=== PATIENT | male | born 1945 | race Caucasian/White ===

== ENCOUNTER 2018-10-25 20:45 | Inpatient (IN) | payer MEDICARE ==
[2018-10-25 21:14] LABS: #Basophils 0.1 thou/uL (0.0-0.2); #Eosinphils 0.2 thou/uL (0.0-0.7); #Lymphocytes 1.7 thou/uL (1.20-3.40); #Monocytes 0.6 thou/uL (0.11-0.59); #Neutrophils 7.9 thou/uL (1.40-6.50); %Basophils 0.7 % (0.0-1.0); %Eosinophils 2.2 % (0.0-10.0); %Lymphocytes 15.9 % (21.0-51.0); %Monocytes 5.8 % (0.0-10.0); %Neutrophils 75.4 % (42.0-75.0); Hemoglobin 14.2 g/dL (14.0-18.0); Mean Corpuscular HGB CONC 32.9 g/dL (32.0-36.0); Mean Corpuscular Hemoglobin 31.8 pg (27.0-31.0); Mean Corpuscular Volume 96.5 fL (78.0-98.0); Mean Platelet Volume 8.1 fL (7.4-10.4); Platelet Count 342 thou/uL (130-400); RBC Distribution Width 12.1 % (11.5-14.5); Red Blood Cell (RBC) Count 4.46 mill/uL (4.70-6.10); White Blood Cell (WBC) Count 10.5 thou/uL (4.8-10.8)
[2018-10-25 21:30] LABS: ALT (SGPT) 12 U/L (8-55); AST (SGOT) 16 U/L (5-34); Albumin 4.4 g/dL (3.4-4.8); Alkaline Phosphatase 120 U/L (40-150); Anion Gap 11 mmol/L (10-20); BUN (Urea Nitrogen) 13 mg/dL (8.4-25.7); Bilirubin, Total 0.7 mg/dL (0.2-1.2); Calc. Creatinine Clearance 0 mL/min (70-130); Calcium 10.1 mg/dL (7.8-10.44); Carbon Dioxide 26 mmol/L (23-31); Chloride 106 mmol/L (98-107); Estimated GFR-MDRD 42; Globulin 2.7 g/dL (2.4-3.5); Glucose 131 mg/dL (83-110); Potassium 3.6 mmol/L (3.5-5.1); Protein, Total 7.1 g/dL (5.8-8.1); Sodium 139 mmol/L (136-145)
--- NOTE | 2018-10-25 21:47 | CT ---
NONCONTRAST HEAD CT: 10/25/18 HISTORY: Stroke-like symptoms x2 days. COMPARISON: None. FINDINGS: No parenchymal hemorrhage. No extra-axial hematoma. No midline shift. Basilar cisterns are patent. a ge appropriate atrophy. Cortical rodriguez-white matter differentiation is preserved. No evidence of hydro cephalus. There is hypoattenuation in the left xie radiata and left centrum semiovale. There is al so hypoattenuation of the right centrum semiovale. Findings may be due to chronic small vessel ischem ic change. White matter infarction cannot be excluded. Adequate aeration of the sinuses and mastoid air cells. Calvarium is intact. IMPRESSION: White matter hypodensities which may be due to chronic small vessel ischemic change versus white gabino er infarct. Given the symptoms have been present for two days, better interrogation with MRI is recom mend. Results of the study discussed with Dr. Salazar, 10/25/18 at 9:19 p.m. Code CR POS: [facility]
--- NOTE | 2018-10-25 23:11 | RAD ---
ONE VIEW CHEST: 10/25/18 HISTORY: Altered mental status. FINDINGS: Atherosclerosis and elongation of the aorta. Normal cardiac silhouette. Pulmonary vessels and hilum a re normal. Costophrenic angles are clear. No mass. No consolidation. No pneumothorax or osseous abn ormalities. IMPRESSION: Atherosclerosis. No acute cardiopulmonary process. POS: [facility]
[2018-10-26] MEDS ORDERED: Bisacodyl 5 MG TAB PO PRN (00:47)
[2018-10-26] MEDS ORDERED: Senokot S 8.6-50 MG TAB PO PRN (00:47)
[2018-10-26] MEDS ORDERED: Ondansetron PF 4 MG/2 ML Vial IVP PRN (00:47)
[2018-10-26] MEDS ORDERED: hydrALAZINE 20 MG/ML VIAL SLOW IVP PRN (00:47)
[2018-10-26] MEDS ORDERED: Ondansetron ODT 4 MG TAB PO PRN (00:47)
[2018-10-26] MEDS ORDERED: Acetaminophen 325 MG TAB PO PRN (00:47)
[2018-10-26] MEDS ORDERED: Labetalol HCl 100 MG/20 ML VIAL SLOW IVP PRN (00:47)
[2018-10-26 02:06] VITALS: BMI 22.6
[2018-10-26] MEDS: Sodium Chloride 0.9% 1,000 ML IV SCH ×2 (02:26→18:25)
[2018-10-26 05:26] LABS: #Basophils 0.1 thou/uL (0.0-0.2); #Eosinphils 0.4 thou/uL (0.0-0.7); #Lymphocytes 1.8 thou/uL (1.20-3.40); #Monocytes 0.8 thou/uL (0.11-0.59); #Neutrophils 7.4 thou/uL (1.40-6.50); %Basophils 0.5 % (0.0-1.0); %Eosinophils 3.7 % (0.0-10.0); %Lymphocytes 17.5 % (21.0-51.0); %Monocytes 7.4 % (0.0-10.0); %Neutrophils 70.9 % (42.0-75.0); Hemoglobin 13.1 g/dL (14.0-18.0); Mean Corpuscular HGB CONC 32.9 g/dL (32.0-36.0); Mean Corpuscular Hemoglobin 31.4 pg (27.0-31.0); Mean Corpuscular Volume 95.6 fL (78.0-98.0); Mean Platelet Volume 8.1 fL (7.4-10.4); Platelet Count 290 thou/uL (130-400); Red Blood Cell (RBC) Count 4.16 mill/uL (4.70-6.10); White Blood Cell (WBC) Count 10.4 thou/uL (4.8-10.8)
[2018-10-26 05:46] LABS: Albumin 3.9 g/dL (3.4-4.8); Anion Gap 9 mmol/L (10-20); BUN (Urea Nitrogen) 13 mg/dL (8.4-25.7); BUN/Creatinine Ratio 9.63; Calc. Creatinine Clearance 57 mL/min (70-130); Calcium 9.7 mg/dL (7.8-10.44); Carbon Dioxide 24 mmol/L (23-31); Cardiac Risk 3.4 (Less than 4.5); Chloride 111 mmol/L (98-107); Cholesterol 151 mg/dl (< 200 Desired); Estimated GFR-MDRD 52; Glucose 100 mg/dL (83-110); HDL Cholesterol 44 mg/dL (>60 Neg Risk); LDL Cholesterol, Calculated 81 mg/dL; Potassium 3.7 mmol/L (3.5-5.1); Sodium 140 mmol/L (136-145); Triglycerides 129 mg/dL (Less than 150)
[2018-10-26] MEDS ORDERED: hydrOXYzine 10 MG TAB PO PRN (07:05)
[2018-10-26] MEDS: Famotidine/PF 20 mg/2ml Vial SLOW IVP SCH ×2 (07:52→20:17)
[2018-10-26] MEDS ORDERED: Levothyroxine 150 MCG TAB PO SCH (08:00)
--- NOTE | 2018-10-26 08:23 | HP ---
CHIEF COMPLAINT: CVA. HISTORY OF PRESENT ILLNESS: This is a 72-year-old male with past medical history significant for hypertension, GERD, hypothyroidism, enlarged prostate, nerve pain, presenting with unilateral weakness, confusion, and facial droop. The patient was brought in by the family and per the family, the patient has been complaining of unilateral weakness, confusion, and facial droop in the past 2 days and family suspects that the patient's symptom is most likely due to his new depression medication, which was started on the day before . The patient's family did some research and they thought that okay, maybe the patient was probably having a stroke and this prompted the ED visit. Upon further questioning with the patient, the patient states that he does not really know what is going on and that he is able to ambulate with a cane, but he had like some weakness, which is new compared to his baseline. The patient denies fever, shortness of breath, chest pain, dizziness, palpitations, abdominal pain, hematuria, hematochezia, or melena. REVIEW OF SYSTEMS: Unable to be obtained since the patient is confused. PAST MEDICAL HISTORY: Hypertension, GERD, hypothyroidism, enlarged prostate, and nerve pain. FAMILY HISTORY: Reviewed and noncontributory to this visit. PAST SURGICAL HISTORY: Tonsillectomy, hernia repair x2. PSYCHIATRIC HISTORY: Depression, bipolar. SOCIAL HISTORY: The patient does not drink or use any illicit drugs and the patient does not smoke. ALLERGIES: NO KNOWN DRUG ALLERGIES. CURRENT MEDICATIONS: The patient takes; 1. Synthroid 150 mcg. 2. Claritin 10. 3. Bupropion 300 mg. 4. Omeprazole. 5. Riboflavin. 6. Tamsulosin 0.4 mg. 7. Acyclovir 400 mg. 8. [place] 300 mg. 9. Cetirizine 10 mg. 10. Trazodone 50 mg. 11. Losartan 50 mg. 12. Hydroxyzine 10 mg. 13. Gabapentin 600 mg. 14. Fluticasone 50 mcg. 15. Asmanex [place]. PHYSICAL EXAMINATION: VITAL SIGNS: The patient's blood pressure is 102/79, pulse of 54, respiratory rate of 18, temperature of 97.7, and oxygen saturation of 99% on room air. GENERAL APPEARANCE: The patient is currently lying on his right side. The patient is able to speak to me in full sentences. The patient appeared to be confused. The patient is alert and oriented x2. HEENT: Normocephalic, atraumatic. Pupils are equally round and reactive to light. Extraocular movements are intact. No scleral icterus. Mucous membranes are dry. NECK: Trachea is midline. Full range of motion. No tenderness. LUNGS: Clear to auscultation bilaterally. No wheezing, no rales, no rhonchi are appreciated. CARDIAC: Positive S1 and S2. Regular rate and rhythm. No murmurs, no gallops , no rubs are appreciated. ABDOMEN: Soft, nontender, and nondistended. Positive bowel sounds in all quadrants. EXTREMITIES: The patient has bilateral upper extremity strength and weakness. The patient do have good pulses bilaterally. For lower extremities, the patient has been some weakness at the lower extremities, but the patient is able to move both lower extremities spontaneously, and the patient is able to elevate his legs bilaterally. The patient does not have any edema noted. NEUROLOGIC: The patient's GCS score is 15. The patient is able to answer questions. SKIN: Warm, dry, and intact. PSYCH: Alert and oriented x2. IMAGING DATA: 1. EKG, sinus arrhythmia with a rate of 62. 2. CT of the head showed white matter hypodensities, which may be due to chronic small-vessel ischemic change versus white matter infarct. Given the symptoms, the patient is presenting for 2 days. MRI has been recommended. 3. Chest x-ray showed no acute cardiopulmonary process. LABORATORY DATA: 1. WBC is 10.5, hemoglobin is 14.2, hematocrit is 43.1, and platelet count is 342. 2. Sodium is 139, potassium is 3.6, chloride is 106, carbon dioxide of 26, anion gap of 11, BUN is 13, creatinine is 1.63, and glucose is 131. AST 16, ALT 12. ASSESSMENT AND PLAN: This is a 72-year-old male with past medical history of hypertension, hypothyroidism, presenting with unilateral weakness and confusion. At this point, we rule out cerebrovascular. The patient's CT scan shows some hypodensities, which may be due to chronic small-vessel ischemic change versus white matter infarct. At this point, we have ordered MRI of the head. We have ordered for an echo. We have consulted Neurology. We will follow up with Neurology's recommendations and we will follow up on morning labs and test results. We have started the patient on aspirin and atorvastatin. We will follow up on the patient's progress and we will continue neuro checks. 1. History of hypertension. We will monitor the patient's blood pressure closely and we will treat the patient's blood pressure accordingly. 2. Gastroesophageal reflux disease. We will continue patient on his home medication of proton pump inhibitors. 3. History of hypothyroidism. We will continue the patient on his home medications of Synthroid. 4. BPH. We will continue the patient on his home medication. 5. Peripheral neuropathy. We will continue the patient on his home medication. 6. Deep vein thrombosis and gastrointestinal prophylaxis. Job ID: [id number] MTDD
[2018-10-26] MEDS: Gabapentin 300 MG CAP PO SCH ×3 (08:29→20:31)
[2018-10-26] MEDS: Aspirin 81 mg Enteric Coated Tablet PO SCH (08:30)
[2018-10-26] MEDS: Bupropion 150 MG XL TAB PO SCH (08:30)
[2018-10-26] MEDS: Famotidine 20 MG TAB PO SCH ×2 (08:31→20:14)
[2018-10-26] MEDS: Heparin 5,000 UNITS/ML VIAL SC SCH ×2 (08:31→20:31)
--- NOTE | 2018-10-26 12:15 | PDOC.PN ---
- Subjective Encounter Start Date: 10/26/18 Encounter Start Time: 11:30 Emotionally labile, becomes tearful as I enter. Martha present at bedside. He is frustrated, unable to work a remote control, feels off balance with sitting up or walking. "I feel weak." Neuro consult remotely performed, consult note pending. MRI not yet performed. - Objective Resuscitation Status - Order Detail: 10/26/18 00:47 Resuscitation Status Routine Resuscitation Status: FULL: Full Resuscitation Vital Signs & Weight: Vital Signs (12 hours) Temp Pulse Resp BP Pulse Ox 10/26/18 11:42 98.5 F 60 16 171/92 H 97 10/26/18 07:48 97.7 F 60 16 142/85 H 98 10/26/18 04:00 97.7 F 61 19 132/68 97 10/26/18 00:45 98.6 F 52 L 18 149/73 H 100 Weight Weight 181 lb 9.6 oz I&O: 10/25/18 10/26/18 10/27/18 06:59 06:59 06:59 Intake Total 700 240 Balance 700 240 Result Diagrams: 10/26/18 05:10 10/26/18 05:10 Additional Labs: Accuchecks 10/25/18 20:50 POC Glucose 122 H Phys Exam - Physical Examination Emotionally labile, tearful HEENT: PERRLA, moist MMs, oral pharynx no lesions Neck: supple, full ROM Respiratory: clear to auscultation bilateral Cardiovascular: RRR Gastrointestinal: soft, non-tender Musculoskeletal: no edema, pulses present Difficulty with finger to nose left hand, decreased service engine repairer strength RUE Speech fluidity limited Deviation from normal: Labile affect. Oriented to person/place Skin: no rash Dx/Plan (1) CVA (cerebral vascular accident) Code(s): I63.9 - CEREBRAL INFARCTION, UNSPECIFIED Status: Suspected Comment : MRI pending, will review neuro consult recommendations when available. Anticipate ASA/statin, PT/OT. Consideration for inpatient status and inpatient rehab pending PT/OT recs. (2) Hypothyroid Code(s): E03.9 - HYPOTHYROIDISM, UNSPECIFIED Status: Chronic Comment: Continue home thyroid replacement (3) Hypertension Code(s): I10 - ESSENTIAL (PRIMARY) HYPERTENSION Status: Chronic (4) GERD (gastroesophageal reflux disease) Code(s): K21.9 - GASTRO-ESOPHAGEAL REFLUX DISEASE WITHOUT ESOPHAGITIS Status: Chronic (5) BPH (benign prostatic hyperplasia) Code(s): N40.0 - BENIGN PROSTATIC HYPERPLASIA WITHOUT LOWER URINRY TRACT SYMP Status: Chronic Comment: Chronic, on flomax (6) Depression Code(s): F32.9 - MAJOR DEPRESSIVE DISORDER, SINGLE EPISODE, UNSPECIFIED Status : Acute - Plan cont current plan of care, plan discussed w/ family, PT/OT, social worker masters, speech therapy, incentive spirometry, DVT proph w/lovenox * See above. Follow up neurologic workup. Doubt based on exam today patient can return independently to home on an observation timeline. Patient high risk.
--- NOTE | 2018-10-26 14:24 | MRI ---
NONCONTRAST MRI OF THE BRAIN: DATE: 10/26/2018. HISTORY: TIA, generalized weakness greater on the left. COMPARISON: Noncontrast CT head on 10/25/2018. FINDINGS: There are punctate and patchy areas of increased FLAIR and T2 weighted signal intensity predominantly seen in a periventricular white matter and to a lesser extent involving the subcortical white matter . These findings are overall nonspecific. While a demyelinating process cannot be excluded given po sition of the white matter signal abnormality, findings are likely reflective of chronic small-vessel ischemic changes. There is no evidence of an acute infarction. Mild cerebral volume is present. The ventricular system is normal in size, shape, and position for t he degree of sulcal atrophy. Appropriate flow voids are demonstrated at the base of the brain. Minimal mucosal thickening is seen in the ethmoidal air cells bilaterally. The orbits and skull base have a normal MRI appearance. IMPRESSION: 1. No acute intracranial abnormalities demonstrated. 2. Signal abnormalities in the periventricular and subcortical white matter likely reflective of chr onic small-vessel ischemic changes. Demyelinating process could not be entirely excluded given the p ositioning and appearance of the white matter signal abnormalities, but this would likely be a known finding. 3. Mild cerebral volume loss. POS: [facility]
[2018-10-26] MEDS: Acyclovir 400 mg Tablet PO SCH (20:13)
[2018-10-26] MEDS: Loratadine 10 MG TAB PO SCH (20:14)
[2018-10-26] MEDS: Lithium Carbonate ER 450 mg Tablet PO SCH (20:14)
[2018-10-26] MEDS: traZODone HCl 50 MG TAB PO SCH (20:14)
[2018-10-26] MEDS: Tamsulosin HCl 0.4 MG CAP PO SCH (20:14)
[2018-10-26] MEDS: Atorvastatin Calcium 40 MG TAB PO SCH (20:14)
[2018-10-26] MEDS ORDERED: Fluticasone Propionate Nasal Spray 16 gm Bottle NASAL PRN (21:15)
--- NOTE | 2018-10-26 23:15 | CON ---
DATE OF CONSULTATION: CHIEF COMPLAINT: Acute stroke. HISTORY OF PRESENT ILLNESS: The patient's fiancee gave the information. The patient has not been feeling well since . He was not feeling well. He was tired. He was sleeping 15 hours a day, was not eating or drinking. Elyssa thought it was the medication, because he was recently started on Eskalith by his psychiatric and he became a bit confused. However, yesterday evening, he developed more speech problems and confusion around 4 to 5 p.m. and developed a left facial droop and left-sided weakness. She recognized the signs of his stroke and brought him immediately to the hospital. The patient is unable to give much history. Due to the delay in presentation, he was not considered for tPA and no tPA was given. Otherwise, the patient is reported to be very healthy, has a good sense of humor. The patient's fiancee has been with him for 7 years. He has had no major health issues. Strokes do run in his family and he does not take aspirin on a daily basis. He did have some dizziness, tiredness, twitching and tremor, and felt that both arms were numb. PAST MEDICAL HISTORY: Hypertension, gastroesophageal reflux disease, hypothyroidism, prostate enlargement, and nerve pain. FAMILY HISTORY: Positive for strokes in a sister, but they do not know which member of the family according to his fiancee. PAST MEDICAL HISTORY: Tonsillectomy and hernia repair. PREVIOUS PSYCHIATRIC HISTORY: He has bipolar disorder. SOCIAL HISTORY: He does not drink or use any alcohol or smoking. ALLERGIES: NO KNOWN DRUG ALLERGIES. HOME MEDICATIONS: 1. Synthroid. 2. Claritin. 3. Bupropion. 4. Omeprazole. 5. Riboflavin. 6. Tamsulosin. 7. Acyclovir. 8. [place]. 9. Cetirizine. 10. Trazodone. 11. Losartan. 12. Hydroxyzine. 13. Gabapentin. 14. Fluticasone. 15. He has not been on any aspirin at home. REVIEW OF SYSTEMS: Difficult to obtain due to the patient's mental status. LABORATORY DATA: White count 10.4, hemoglobin 13.1, hematocrit 39.7, and platelets 290. Chemistries, sodium 140, potassium 3.7, chloride 111, BUN 13, and creatinine 1.35. Cholesterol panel as noted and it is normal. TSH 0.55. His MRI is performed and he has no acute intracranial abnormalities. He has punctate patchy area of increased FLAIR and T2 wide signal and numerous chronic small vessel ischemic changes and signal abnormality in the periventricular subcortical white matter, likely chronic microvascular ischemic changes. He has mild cerebral volume loss. PHYSICAL EXAMINATION: VITAL SIGNS: Blood pressure 142/85, pulse 60, and temperature 97.7. GENERAL: Alert, awake, and not oriented to time, place and person. He has some confusion and does follow commands. CHEST: Clear vesicular breathing. CARDIOVASCULAR: S1, S2 heard. No murmurs. ABDOMEN: Soft. NEUROLOGICAL: Higher intellectual functions. As noted, he is somewhat confused, does not follow full commands. Cranial nerves, he has left facial droop and pupils are normal and reactive to light. Normal sensation of face. Tongue, midline. No atrophy. Normal hearing. Normal elevation of palate. Motor examination, bulk normal, tone normal. Strength is 5/5 in the right side in general, difficult to assess individual muscle groups. Left upper extremity gross strength is 3/5. Sensory, difficult to assess. IMPRESSION: The patient is a 72-year-old man, who comes in with 2- to 3-day history of difficulty with cognitive function along with left-sided weakness. His examination shows confusion and mild cerebellar dysfunction on the left side along with some asymmetry with weakness on the left side, likely these findings are due to some of the small vessel ischemic events. At this time since he also may have some confusion due to his new medication changes from psychiatry as well, it is best to clinically follow this patient. TREATMENT PLAN: We will start him on aspirin for stroke prophylaxis. We will follow the patient clinically. Please complete stroke workup including echocardiogram and carotid Dopplers, and I will see the patient again tomorrow. Job ID: [id number]
[2018-10-27] MEDS: Sodium Chloride 0.9% 1,000 ML IV SCH (05:02)
[2018-10-27] MEDS: Levothyroxine 150 MCG TAB PO SCH (05:19)
[2018-10-27 05:23] LABS: Band 2 % (5-11); Eosinophils 2 % (0-10); Hemoglobin 12.7 g/dL (14.0-18.0); Lymphocytes 11 % (21-51); MDiff Complete? YES; Mean Corpuscular HGB CONC 33.8 g/dL (32.0-36.0); Mean Corpuscular Volume 94.9 fL (78.0-98.0); Mean Platelet Volume 8.3 fL (7.4-10.4); Monocytes 4 % (0-10); Neutrophil 80 % (42-75); PLT Morphology Comment Appears Adequate; Platelet Count 286 thou/uL (130-400); RBC Distribution Width 11.8 % (11.5-14.5); RBC Morphology Normal; Reactive Lymphocytes 1 % (0-10); Red Blood Cell (RBC) Count 3.96 mill/uL (4.70-6.10); White Blood Cell (WBC) Count 8.6 thou/uL (4.8-10.8)
[2018-10-27 05:25] LABS: Anion Gap 11 mmol/L (10-20); BUN (Urea Nitrogen) 11 mg/dL (8.4-25.7); Calc. Creatinine Clearance 68 mL/min (70-130); Calcium 9.4 mg/dL (7.8-10.44); Carbon Dioxide 22 mmol/L (23-31); Cardiac Risk 3.2 (Less than 4.5); Chloride 112 mmol/L (98-107); Cholesterol 142 mg/dl (< 200 Desired); Estimated GFR-MDRD 64; Glucose 103 mg/dL (83-110); HDL Cholesterol 45 mg/dL (>60 Neg Risk); LDL Cholesterol, Calculated 79 mg/dL; Potassium 3.5 mmol/L (3.5-5.1); Sodium 141 mmol/L (136-145); Triglycerides 92 mg/dL (Less than 150)
[2018-10-27] MEDS ORDERED: Prevnar 13-Val Conj/PF 0.5 ML SYRINGE IM ONE (09:00)
[2018-10-27] MEDS: Bupropion 150 MG XL TAB PO SCH (10:25)
[2018-10-27] MEDS: Gabapentin 300 MG CAP PO SCH ×3 (10:26→21:05)
[2018-10-27] MEDS: Famotidine 20 MG TAB PO SCH ×2 (10:26→21:06)
[2018-10-27] MEDS: Heparin 5,000 UNITS/ML VIAL SC SCH ×2 (10:26→21:05)
[2018-10-27] MEDS: Aspirin 81 mg Enteric Coated Tablet PO SCH (10:26)
[2018-10-27] MEDS: Famotidine/PF 20 mg/2ml Vial SLOW IVP SCH ×2 (10:27→21:25)
--- NOTE | 2018-10-27 11:17 | PRG ---
DATE OF SERVICE: 10/27/2018 SUBJECTIVE: The patient is seen and examined at the bedside. He noticed that he is not able to stand up. His back and legs are not strong enough to hold him up while trying to stand. He ate his breakfast. His appetite is coming back. OBJECTIVE: VITAL SIGNS: Blood pressure is 158/79, pulse is 61, temperature is 97.5, O2 saturation is 97% on room air, and his respiratory rate is 16. HEENT: His head is atraumatic and normocephalic. Eyes, PERRLA. Sclerae are nonicteric. Oral mucosa is moist. NECK: Supple. LUNGS: Clear. HEART: S1 and S2 normal. No S3. No S4. ABDOMEN: Soft, nontender, and nondistended. Bowel sounds are present. No organomegaly. EXTREMITIES: No clubbing, cyanosis, or edema. MUSCULOSKELETAL SYSTEM: Shows a normal muscle tone in upper and lower extremities. There is some weakness in the lower extremities. He is able to elevate both legs and hold them up. NEUROLOGIC: He follows my commands. He does not have any sensory deficits. I do not see any facial droop. There is no any difference between the right arm strength and the left arm strength. LABORATORY DATA: Lab showed white count of 8.6, hemoglobin 12.7, hematocrit 37.6, platelet count is 286,000, and neutrophils 80%. Sodium of 141, potassium 3.5, chloride 112, CO2 of 22, BUN 11, creatinine 1.13, glucose 103, calcium 9.4, triglycerides 92, total cholesterol 142, LDL 79, and HDL is 45. MRI of the brain done yesterday showed punctate and patchy areas of increased FLAIR and T2 weighted signal intensity predominantly seen in the periventricular white matter and to a lesser extent involving the subcortical white matter. The findings were nonspecific. Demyelinating process could not be excluded given position of the white matter signal abnormality, but radiologists is leaning towards chronic small vessel ischemic changes. There was nonevidence of infarction of acute nature. There was mild cerebral volume present. Minimal mucosal thickening was seen in the ethmoidal air cell bilaterally and there was some mild cerebral volume loss. An echocardiogram showed LVEF of 50% to 55%, some suggestion of diastolic dysfunction, mild mitral and mild aortic regurgitation, and mild tricuspid regurgitation were present on echocardiogram. IMPRESSION: 1. Episodes of confusion with some facial droop and 1 sided weakness resolved. MRI is showing most likely small vessel ischemic changes. No acute infarction. The patient is on aspirin and statin. The patient was seen by neurologist and that is a working diagnosis. We are awaiting for carotid ultrasound to be done to complete cerebrovascular accident workup. 2. Back/lower extremity weakness of unclear etiology. Apparently, the patient has this issue chronically, which presents with some back pain associated with some change of L4, but he is not sure what exactly is wrong with L4. He has normal reflexes in both knees and his Babinski sign is downgoing bilaterally. He is not in any pain during my visit and his lower extremities showed some mild weakness bilaterally. We will address this issue with a neurologist as Dr. Carnes, who is seeing the patient on consultation. 3. Hypothyroidism, on replacement. 4. Hypertension. 5. Gastroesophageal reflux disease. 6. Benign prostatic hyperplasia. 7. Depression. PLAN: At this point, awaiting for carotid ultrasound to be done. We will continue PT and OT. We will address his lower extremity weakness with neurologist. We will see whether she recommends an additional workup of this process, since this is chronic. We will continue DVT prophylaxis. Job ID: [id number]
--- NOTE | 2018-10-27 15:12 | PRG ---
DATE OF SERVICE: 10/27/2018 INTERVAL CHIEF COMPLAINT: Altered mental status. INTERVAL HISTORY: The patient reports that he was on lithium, but it was increased two and a half times compared to his past dosage. He also stated his left side is almost feeling weak and he had some problems with his back as well in his past. He is feeling better as far as his mental status is concerned today and current workup MRI has been negative for any acute infarct. LABORATORY WORKUP: White count is 8.6, hemoglobin 12.7, hematocrit 37, platelets 286. Sodium 141, potassium 3.5, chloride 112, bicarbonate 22, BUN is 11, and creatinine 1.13. PHYSICAL EXAMINATION: VITAL SIGNS: Blood pressure 137/77, pulse 62, temperature 98.1. GENERAL APPEARANCE: Alert, awake, oriented to time, place, and person. Cranial nerves; normal extraocular movements, and no facial asymmetry. Motor examination; bulk normal. Tone normal. Strength is 5/5 in upper and lower extremities on the right. Left side strength is 4/5. Deep tendon reflexes, he has hyperreflexia throughout. IMPRESSION: The patient with high doses of lithium and at this time, he is having problems with his left side even now and he has been having some confusion, which seems to have resolved. On examination, he has left-sided weakness in both upper and lower extremities and we need to investigate further he has any cervical spine stenosis or cervical spine disease including possible two spine lesions such as demyelination. TREATMENT PLAN: I requested an MRI of the cervical spine with and without gadolinium and please obtain lithium level on him. Please call Neurology if MRI is abnormal. Job ID: [id number]
--- NOTE | 2018-10-27 17:17 | MRI ---
MRI CERVICAL SPINE WITH AND WITHOUT IV CONTRAST: Date: 10-27-18 History: Left arm and left leg weakness. Comparison: None available. FINDINGS: Cervical medullary junction demonstrates a normal MRI appearance. There are remote fractures involvin g the anterior and superior endplates of the T2 and T3 vertebral bodies without abnormal marrow signa l intensity seen on STIR imaging suggesting that this most likely related to more remote minimal comp ression fractures of the vertebral bodies. There is slight heterogeneity of signal within the vertebr al bodies related to focal areas of fat. No other significant abnormalities are seen throughout the o sseous structures. There are mild multilevel disc degenerative changes present. C2-3: There is mild central disc protrusion which slightly effaces the ventral subarachnoid space. Th ere is mild degenerative changes predominately on the right resulting in mild right sided neural fora daren narrowing. The left neural foramen is patent. C3-4: There is a mild disc osteophyte complex slightly effacing the ventral subarachnoid space. There are facet degenerative changes at this level. Moderate bilateral neural foraminal narrowing is prese nt, greater on the left. C4-5: There is a mild broad based disc osteophyte complex with uncinate process hypertrophy seen on t he left. There is moderate left and mild right sided neural foraminal narrowing. There is mild efface ment of the ventral subarachnoid space, but this does not encroach on the spinal cord. C5-6: There is slight loss of intervertebral disc height. There is a broad based disc osteophyte comp debbie with tiny central disc protrusion present. This narrows the ventral subarachnoid space with sligh t flattening of the aspect of the spinal cord, but there is normal signal intensity seen in the spina l cord. There is moderate right and moderate to severe left sided neural foraminal narrowing. C6-7: There is a broad based disc osteophyte complex with left paracentral disc protrusion. This narr ows the ventral subarachnoid space and there is very slight flattening of the central and left barbara lateral aspect of the spinal cord. There is normal signal intensity in the spinal cord. There is mild right and moderate left sided neural foraminal narrowing. C7-T1: There is minimal disc bulge. The central spinal canal and neural foramina are present at this level. No abnormal areas of enhancement are seen after the administration of intravenous contrast. Paraverte bral soft tissues are within normal limits. IMPRESSION: 1. Degenerative changes in the cervical spine. 2. Minimal remote compression fractures of the superior endplates of the T2 and T3 vertebral bodies. 3. No abnormal enhancement is seen after the administration of intravenous contrast. POS: [facility]
[2018-10-27] MEDS: Tamsulosin HCl 0.4 MG CAP PO SCH (21:05)
[2018-10-27] MEDS: traZODone HCl 50 MG TAB PO SCH (21:05)
[2018-10-27] MEDS: Atorvastatin Calcium 40 MG TAB PO SCH (21:05)
[2018-10-27] MEDS: Lithium Carbonate ER 450 mg Tablet PO SCH (21:06)
[2018-10-27] MEDS: Loratadine 10 MG TAB PO SCH (21:06)
[2018-10-27] MEDS: Acyclovir 400 mg Tablet PO SCH (21:06)
[2018-10-27] MEDS: Zolpidem Tartrate 5 MG TAB PO PRN (22:42)
[2018-10-28] MEDS: Levothyroxine 150 MCG TAB PO SCH (06:15)
[2018-10-28] MEDS: Famotidine/PF 20 mg/2ml Vial SLOW IVP SCH (10:14)
[2018-10-28] MEDS: Heparin 5,000 UNITS/ML VIAL SC SCH ×2 (10:25→21:50)
[2018-10-28] MEDS: Bupropion 150 MG XL TAB PO SCH (10:26)
[2018-10-28] MEDS: Gabapentin 300 MG CAP PO SCH ×3 (10:26→21:38)
[2018-10-28] MEDS: Aspirin 81 mg Enteric Coated Tablet PO SCH (10:26)
[2018-10-28] MEDS: Famotidine 20 MG TAB PO SCH ×2 (10:26→21:37)
--- NOTE | 2018-10-28 10:37 | ULT ---
CAROTID DUPLEX SONOGRAM: HISTORY: CVA. Vascular disease. FINDINGS: RIGHT: Color and spectral Doppler evaluation, peak systolic velocity of 58 cm/s, and IC to CC ratio of 0.6 s uggests no hemodynamically significant stenosis within the extracranial right ICA. Antegrade flow wi thin the vertebral artery. LEFT: Color and spectral Doppler evaluation, peak systolic velocity of 49 cm/s, and IC to CC ratio of 0.6 s uggests no hemodynamically significant stenosis within the extracranial left ICA. Antegrade flow wit hin the vertebral artery. IMPRESSION: No sonographic evidence of significant extracranial internal carotid artery stenosis. POS: [facility]
--- NOTE | 2018-10-28 15:10 | PRG ---
DATE OF SERVICE: 10/28/2018 SUBJECTIVE: The patient is seen and examined at the bedside. He was able to get up and walk some with physical therapy today, so overall he is feeling better, but he has moments when he wakes up from sleep and he does not know where he is, which lasts only few minutes, but it keeps coming back. OBJECTIVE: VITAL SIGNS: Blood pressure is 152/62, temperature is 97.5, pulse 69, respiratory rate 16, O2 saturation 97% on room air. HEENT: Head is atraumatic and normocephalic. Eyes are PERRLA. Sclerae are nonicteric. Oral mucosa is moist. NECK: Supple. No lymphadenopathy. Thyroid is not palpable. LUNGS: Clear. HEART: S1, S2 normal. No S3, no S4. ABDOMEN: Soft, nontender. Bowel sounds are present. No organomegaly. EXTREMITIES: No clubbing, cyanosis, or edema. NEUROLOGICAL: He is alert and oriented x4. EXTREMITIES: Lower extremities show some weakness, but this seems to be improving with PT. He does not have much pain. LABORATORY DATA: Labs showed a lithium level of 0.804. Carotid Doppler showed no sonographic evidence of significance, except for internal carotid artery stenosis, and cervical spine MRI ordered by Dr. Carnes for Neurology evaluation showed degenerative changes in the cervical spine along with minimal remote compression fractures of the superior endplates of the T2 and T3 vertebral bodies. There was no abnormal enhancement seen after the administration of intravenous contrast. IMPRESSION: 1. Episodes of confusion with some facial droop and one-sided weakness. The patient was re-evaluated by Dr. Carnes for Neurology assessment. The patient's lithium level came back not elevated. MRI did not show any demyelinating lesions in the spine. 2. Hypothyroidism, on replacement. 3. Lower back/lower extremity weakness, improved with PT. CT of the neck showed some old minimal fractures which should not be the cause of the above-mentioned problem. This looks more chronic to me. He admitted that he was in the [employer], and as a soldier, he had to do all kinds of stuff, falls, and this could be related to that. 4. Hypertension. 5. Gastroesophageal reflux disease. 6. Benign prostatic hyperplasia. 7. Depression. PLAN: Plan is to get him to the rehab. Continue PT and OT. Continue his DVT prophylaxis. Job ID: [id number]
[2018-10-28] MEDS: Acyclovir 400 mg Tablet PO SCH (21:36)
[2018-10-28] MEDS: traZODone HCl 50 MG TAB PO SCH (21:36)
[2018-10-28] MEDS: Tamsulosin HCl 0.4 MG CAP PO SCH (21:37)
[2018-10-28] MEDS: Atorvastatin Calcium 40 MG TAB PO SCH (21:37)
[2018-10-28] MEDS: Lithium Carbonate ER 450 mg Tablet PO SCH (21:38)
[2018-10-28] MEDS: Loratadine 10 MG TAB PO SCH (21:54)
[2018-10-29] MEDS: Zolpidem Tartrate 5 MG TAB PO PRN (00:27)
[2018-10-29] MEDS: Levothyroxine 150 MCG TAB PO SCH (05:54)
[2018-10-29] MEDS: Bupropion 150 MG XL TAB PO SCH (08:29)
[2018-10-29] MEDS: Famotidine 20 MG TAB PO SCH ×2 (08:30→20:41)
[2018-10-29] MEDS: Aspirin 81 mg Enteric Coated Tablet PO SCH (08:30)
[2018-10-29] MEDS: Gabapentin 300 MG CAP PO SCH ×3 (08:30→20:41)
[2018-10-29] MEDS: Heparin 5,000 UNITS/ML VIAL SC SCH ×2 (08:31→20:55)
--- NOTE | 2018-10-29 13:21 | PRG ---
DATE OF SERVICE: 10/29/2018 SUBJECTIVE: The patient is seen and examined at bedside. He is doing gradually better. He states he is walking today with physical therapy. His mental function is back to normal. He did not have more episodes of confusion. OBJECTIVE: VITAL SIGNS: Blood pressure is 130/71, pulse is 74, temperature 97.7, respiratory rate is 20, O2 saturation is 100. His head is atraumatic and normocephalic. Eyes are PERRLA. Sclerae are not icteric. Oral mucosa is moist. NECK: Supple. LUNGS: Clear. HEART: S1, S2 normal. No S3. No S4. ABDOMEN: Soft, nontender, nondistended. EXTREMITIES: No clubbing, cyanosis, or edema. There is weakness in lower extremities, in thighs and calves, 3/5. NEUROLOGICAL: He is alert and oriented x4. There is not any sensory or motor deficits present. Cranial nerves are intact. LABORATORY DATA: None today. IMPRESSION: 1. Episodes of confusion with some facial droop and one-sided weakness. The patient was seen by Neurology and we do not have more explanation of his current condition. The MRI did not show any lesions in his cervical spine. An MRI of the brain showed signal abnormalities in the periventricular and subcortical white matter, likely reflective of chronic small vessel ischemic changes. Blood demyelinating process was not entirely excluded. 2. Hypothyroidism, on replacement. 3. Low back/lower extremity weakness, improving with PT. The patient is going to be sent to the rehab tomorrow. 4. Hypertension. 5. Gastroesophageal reflux disease, stable. 6. Benign prostatic hyperplasia, stable. 7. Depression, stable. PLAN: As mentioned above, rehab transfer tomorrow. Continue PT, OT, DVT prophylaxis. Continue atorvastatin, aspirin, bupropion, gabapentin, levothyroxine, lithium, loratadine, pantoprazole, and trazodone. Job ID: [id number]
[2018-10-29] MEDS: traZODone HCl 50 MG TAB PO SCH (20:41)
[2018-10-29] MEDS: Acyclovir 400 mg Tablet PO SCH (20:41)
[2018-10-29] MEDS: Atorvastatin Calcium 40 MG TAB PO SCH (20:41)
[2018-10-29] MEDS: Tamsulosin HCl 0.4 MG CAP PO SCH (20:41)
[2018-10-29] MEDS: Loratadine 10 MG TAB PO SCH (20:41)
[2018-10-29] MEDS: Lithium Carbonate ER 450 mg Tablet PO SCH (20:42)
[2018-10-30] MEDS: Levothyroxine 150 MCG TAB PO SCH (05:33)
[2018-10-30] MEDS: Aspirin 81 mg Enteric Coated Tablet PO SCH (12:04)
[2018-10-30] MEDS: Heparin 5,000 UNITS/ML VIAL SC SCH ×2 (12:04→21:28)
[2018-10-30] MEDS: Gabapentin 300 MG CAP PO SCH ×3 (12:05→21:27)
[2018-10-30] MEDS: Bupropion 150 MG XL TAB PO SCH (12:58)
[2018-10-30] MEDS: Famotidine 20 MG TAB PO SCH ×2 (12:58→21:28)
--- NOTE | 2018-10-30 14:28 | PRG ---
DATE OF SERVICE: 10/30/2018 SUBJECTIVE: The patient is seen and examined at the bedside. He is not feeding, much improvement in his lower extremities despite of PT. OBJECTIVE: VITAL SIGNS: Blood pressure is 125/78, pulse is 63, respiratory rate is 16, O2 saturation 99% on room air, and temperature is 97.3. HEENT: His head is atraumatic and normocephalic. Eyes are PERRLA. Sclerae are nonicteric. Oral mucosa is moist. NECK: Supple. LUNGS: Clear. HEART: S1, S2 normal. No S3. No S4. ABDOMEN: Soft, nontender. Bowel sounds are present. No organomegaly. EXTREMITIES: Some weakness in lower extremities present in thighs and calves, is approximately 4/5 bilaterally similar. Upper extremities, normal strength. NEUROLOGICAL: He is alert and oriented x4. There is no evidence of any motor or sensory deficits present. Cranial nerves are intact. LABORATORY DATA: None today. IMPRESSION: 1. Episodes of confusion with some facial droop and one-sided weakness, resolved. 2. Hypothyroidism, on replacement. 3. Lower extremity weakness, home PT. The patient is able to walk 300 feet, but according to him, he is not able to go back to his house since he has a small baby. He needs to use a walker and environment in his house is not appropriate for further rehabilitation process. He insists to be transferred to the rehabilitation to intensify his effort of regaining strength in his lower extremities. 4. Hypertension. 5. Gastroesophageal reflux disease, stable. 6. Benign prostatic hyperplasia, stable. 7. Depression, stable. PLAN: We are going to continue his current regimen until he is screened for the rehab and arrange the transfer, so we will continue his atorvastatin, aspirin, bupropion, gabapentin, levothyroxine, lithium, loratadine, pantoprazole, and trazodone. Job ID: [id number]
[2018-10-30] MEDS: Tamsulosin HCl 0.4 MG CAP PO SCH (21:27)
[2018-10-30] MEDS: Lithium Carbonate ER 450 mg Tablet PO SCH (21:27)
[2018-10-30] MEDS: Acyclovir 400 mg Tablet PO SCH (21:28)
[2018-10-30] MEDS: Atorvastatin Calcium 40 MG TAB PO SCH (21:28)
[2018-10-30] MEDS: traZODone HCl 50 MG TAB PO SCH (21:28)
[2018-10-30] MEDS: Loratadine 10 MG TAB PO SCH (21:28)
[2018-10-31] MEDS: Levothyroxine 150 MCG TAB PO SCH (05:54)
[2018-10-31 08:01] VITALS: TEMP 97.6
[2018-10-31 09:41] VITALS: BP 120/66
[2018-10-31] MEDS: Aspirin 81 mg Enteric Coated Tablet PO SCH (09:41)
[2018-10-31] MEDS: Gabapentin 300 MG CAP PO SCH (09:42)
[2018-10-31] MEDS: Famotidine 20 MG TAB PO SCH (09:42)
[2018-10-31] MEDS: Bupropion 150 MG XL TAB PO SCH (09:42)
[2018-10-31] MEDS: Heparin 5,000 UNITS/ML VIAL SC SCH (09:42)
== END 2018-10-31 12:13 | DRG 65 ==
LOC: ERS 20:45 → 2SE 23:20 → OBSVTOIN 23:20 → 2SE 10-26 00:40
PROVIDERS: ADMIT Internal Medicine; ATTEND Internal Medicine
DX: I63.9 Cerebral infarction, unspecified (principal); G81.94 Hemiplegia, unspecified affecting left nondominant side; I10 Essential (primary) hypertension; K21.9 Gastro-esophageal reflux disease without esophagitis; E03.9 Hypothyroidism, unspecified; N40.0 Benign prostatic hyperplasia without lower urinary tract symptoms; F31.9 Bipolar disorder, unspecified; G62.9 Polyneuropathy, unspecified; R29.810 Facial weakness
CPT/HCPCS: 36415; 36416; 70450; 70498; 70551; 71045; 72156; 80048; 80053; 80061; 80069; 80178; 84443; 84484; 85007; 85025; 85027; 90471; 90670; 93005; 93010; 93306; 93880; G0009; G8978-GP-CL; G8979-GP-CJ; G8987-GO-CK; G8988-GO-CJ; G9162-GN-CJ; G9163-GN-CI; J1644

== ENCOUNTER 2018-12-24 13:36 | Observation (INO) | payer MEDICARE, OTHER ==
[2018-12-24 14:19] LABS: #Eosinphils 0.4 thou/uL (0.0-0.7); #Lymphocytes 1.1 thou/uL (1.20-3.40); #Monocytes 0.5 thou/uL (0.11-0.59); #Neutrophils 5.7 thou/uL (1.40-6.50); %Basophils 0.5 % (0.0-1.0); %Eosinophils 5.1 % (0.0-10.0); %Lymphocytes 14.5 % (21.0-51.0); %Monocytes 6.6 % (0.0-10.0); %Neutrophils 73.3 % (42.0-75.0); Hemoglobin 13.7 g/dL (14.0-18.0); Mean Corpuscular Hemoglobin 30.7 pg (27.0-31.0); Mean Platelet Volume 8.4 fL (7.4-10.4); Platelet Count 304 thou/uL (130-400); RBC Distribution Width 11.5 % (11.5-14.5); Red Blood Cell (RBC) Count 4.46 mill/uL (4.70-6.10); White Blood Cell (WBC) Count 7.8 thou/uL (4.8-10.8)
[2018-12-24 14:38] LABS: ALT (SGPT) 21 U/L (8-55); AST (SGOT) 17 U/L (5-34); Albumin 3.9 g/dL (3.4-4.8); Alkaline Phosphatase 121 U/L (40-150); Anion Gap 10 mmol/L (10-20); BUN (Urea Nitrogen) 18 mg/dL (8.4-25.7); Bilirubin, Total 0.5 mg/dL (0.2-1.2); Calc. Creatinine Clearance 0 mL/min (70-130); Calcium 9.6 mg/dL (7.8-10.44); Carbon Dioxide 23 mmol/L (23-31); Chloride 109 mmol/L (98-107); Estimated GFR-MDRD 47; Globulin 2.5 g/dL (2.4-3.5); Glucose 107 mg/dL (83-110); Lipase 19 U/L (8-78); Potassium 4.2 mmol/L (3.5-5.1); Protein, Total 6.4 g/dL (5.8-8.1); Sodium 138 mmol/L (136-145)
--- NOTE | 2018-12-24 15:03 | RAD ---
CHEST 1 VIEW: Date: 12/24/18 HISTORY: Mid sternal chest pain. COMPARISON: 10/25/18 exam. FINDINGS: Heart size is enlarged. There are atherosclerotic changes of the aorta. The lungs are clear of infilt rates. IMPRESSION: Marked cardiomegaly. No signs of failure or focal infiltrate. POS: TPC
--- NOTE | 2018-12-24 17:01 | PDOC.FPRHP ---
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 Per the patient, he has had a constant substernal chest pain for the last 3-4 months that describes as an achy pain & rates as a 3/10 in severity at baseline. He does; however, report that the pain is exacerbated with taking a deep breath and exertion and increases to an 8/10 in severity at these times and is sharp in nature. The patient reports partial relief with rest and endorses associated SOB, nausea and lightheadedness but denies any diaphoresis. 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 The patient also reports having had an abnormal ECHO on his recent admission for his stroke. ED Course: Nothing was given in the ED. Patient took 81mg of ASA w/ QD meds earlier today. - Allergies/Adverse Reactions Allergies Allergy/AdvReac Type Severity Reaction Status Date / Time No Known Allergies Allergy Verified 10/26/18 01:38 - Home Medications Medication Instructions Recorded Confirmed Type Acyclovir 400 mg PO HS 10/26/18 10/26/18 History Cetirizine HCl [Zyrtec] 10 mg PO HS 10/26/18 10/26/18 History Fluticasone Propionate [Flovent 50 mcg NASAL DAILY PRN 10/26/18 10/26/18 History Diskus] Gabapentin 300 mg PO TID 10/26/18 10/26/18 History Levothyroxine [Synthroid] 150 mcg PO DAILY 10/26/18 10/26/18 History [place] Carbonate [Eskalith] 450 mg PO HS 10/26/18 10/26/18 History Loratadine [Claritin] 10 mg PO DAILY PRN 10/26/18 10/26/18 History Losartan Potassium [Cozaar] 50 mg PO HS 10/26/18 10/26/18 History Mometasone Furoate [Asmanex 220 mcg IH DAILY PRN 10/26/18 10/26/18 History Twisthaler] Omeprazole 20 mg PO BID 10/26/18 10/26/18 History Riboflavin (Vitamin B2) 100 mg PO BID 10/26/18 10/26/18 History [Riboflavin] Tamsulosin HCl [Flomax] 0.4 mg PO HS 10/26/18 10/26/18 History buPROPion HCl [buPROPion HCl XL] 300 mg PO DAILY 10/26/18 10/26/18 History hydrOXYzine HCl 10 mg PO DAILY PRN 10/26/18 10/26/18 History traZODone HCl [Trazodone HCl] 50 mg PO HS 10/26/18 10/26/18 History Acetaminophen [Tylenol Regular 650 mg PO Q4H PRN tab 10/31/18 Rx Strength] Aspirin [Ecotrin Low Strength] 81 mg PO DAILY tab 10/31/18 Rx Atorvastatin Calcium [Lipitor] 80 mg PO HS tab 10/31/18 Rx Ondansetron [Zofran ODT] 4 mg PO Q6H PRN tab 10/31/18 Rx Zolpidem Tartrate [Ambien] 5 mg PO HSPRN PRN tab 10/31/18 Rx - History PMHx: h/o CVA in Sep w/ residual L-sided deficits, GERD, HTN, HLD, BPH, Bipolar disorder, depression, hypothyroidism PSHx: tonsillectomy & hernia repair x2 FHx: Father: from an [place] at age 82. Mother : multiple CVAs Social: Former smoker. Quit in 1981. Smoked just < 1ppd for at least 20 years. Former alcoholic. No EtOH since 1974. No drug use. Lives at home with 40YO significant other and 1 year old child. - Review of Systems General: reports: fatigue. denies: weight/appetite/sleep changes Eyes: denies: eye pain, vision changes ENT: reports: other (no sore throat). denies: rhinorrhea Respiratory: reports: shortness of breath. denies: cough Cardiovascular: reports: chest pain. denies: edema Gastrointestinal: reports: nausea. denies: vomiting, abdominal pain Genitourinary: reports: other (no hematuria). denies: dysuria Skin: reports: other (no skin changes). denies: rashes Musculoskeletal: reports: pain, tenderness Neurological: reports: other (no headache). denies: syncope Psychological: reports: depression, other (bipolar disorder) - Vital signs BP: 135/80 HR: 78 RR: 21 Tmax: 98.5F Pox: 97% on RA Wt: 89kg - Physical Exam Constitutional: NAD, awake, alert and oriented, well developed HEENT: normocephalic and atraumatic, conjunctiva clear, grossly normal vision, grossly normal hearing, MMM Neck: supple, FROM Chest: other (TTP in R sternum) Heart: normal S1/S2, no murmurs/rubs/gallops, pulses present, no edema, other ( irregular rhythm but normal rate) Lungs: CTAB, no respiratory distress, good air movement, no rales/rhonchi, no wheezing Abdomen: no masses/distention Musculoskeletal: normal structure, ROM grossly normal Neurological: CN II-XII intact (grossly), other (mild L-sided weakness, otherwise no focal deficits) Skin: no rash/lesions, good turgor, capillary refill <2 seconds Heme/Lymphatic: no unusual bruising or bleeding, no purpura, no petechia Psychiatric: normal mood and affect, good judgment and insight, intact recent and remote memory FMR H&P: Results - Labs Result Diagrams: 12/24/18 13:59 12/24/18 13:59 Lab results: WBC 7.8 thou/uL (4.8-10.8) 12/24/18 13:59 Hgb 13.7 g/dL (14.0-18.0) L 12/24/18 13:59 Hct 42.8 % (42.0-52.0) 12/24/18 13:59 MCV 96.0 fL (78.0-98.0) 12/24/18 13:59 Plt Count 304 thou/uL (130-400) 12/24/18 13:59 Neutrophils % 73.3 % (42.0-75.0) 12/24/18 13:59 Sodium 138 mmol/L (136-145) 12/24/18 13:59 Potassium 4.2 mmol/L (3.5-5.1) 12/24/18 13:59 Chloride 109 mmol/L (98-107) H 12/24/18 13:59 Carbon Dioxide 23 mmol/L (23-31) 12/24/18 13:59 BUN 18 mg/dL (8.4-25.7) 12/24/18 13:59 Creatinine 1.46 mg/dL (0.7-1.3) H 12/24/18 13:59 Glucose 107 mg/dL (83-110) 12/24/18 13:59 Calcium 9.6 mg/dL (7.8-10.44) 12/24/18 13:59 Total Bilirubin 0.5 mg/dL (0.2-1.2) 12/24/18 13:59 AST 17 U/L (5-34) 12/24/18 13:59 ALT 21 U/L (8-55) 12/24/18 13:59 Alkaline Phosphatase 121 U/L (40-150) 12/24/18 13:59 B-Natriuretic Peptide 78.8 pg/mL (0-100) 12/24/18 13:59 Serum Total Protein 6.4 g/dL (5.8-8.1) 12/24/18 13:59 Albumin 3.9 g/dL (3.4-4.8) 12/24/18 13:59 Lipase 19 U/L (8-78) 12/24/18 13:59 - EKG Interpretation EKG: sinus arrhythmia w/ rate of 73 - Radiology Interpretation Chest x-ray Status: image reviewed by me, report reviewed by me (per Radiology marked cardiomegaly (changed from CXR in September)) FMR H&P: A/P - Problem List (1) Bipolar disorder Current Visit: Yes Status: Chronic Code(s): F31.9 - BIPOLAR DISORDER, UNSPECIFIED (2) HLD (hyperlipidemia) Current Visit: Yes Status: Chronic Code(s): E78.5 - HYPERLIPIDEMIA, UNSPECIFIED (3) (HFpEF) heart failure with preserved ejection fraction Current Visit: Yes Status: Chronic Code(s): I50.30 - UNSPECIFIED DIASTOLIC ( CONGESTIVE) HEART FAILURE Qualifiers: Heart failure chronicity: chronic Qualified Code(s): I50.32 - Chronic diastolic (congestive) heart failure (4) Chest pain Current Visit: Yes Status: Acute Code(s): R07.9 - CHEST PAIN, UNSPECIFIED (5) Depression Current Visit: Yes Status: Chronic Code(s): F32.9 - MAJOR DEPRESSIVE DISORDER, SINGLE EPISODE, UNSPECIFIED (6) BPH (benign prostatic hyperplasia) Current Visit: Yes Status: Chronic Code(s): N40.0 - BENIGN PROSTATIC HYPERPLASIA WITHOUT LOWER URINRY TRACT SYMP (7) GERD (gastroesophageal reflux disease) Current Visit: Yes Status: Chronic Code(s): K21.9 - GASTRO-ESOPHAGEAL REFLUX DISEASE WITHOUT ESOPHAGITIS (8) Hypertension Current Visit: Yes Status: Chronic Code(s): I10 - ESSENTIAL (PRIMARY) HYPERTENSION (9) Hypothyroid Current Visit: Yes Status: Chronic Code(s): E03.9 - HYPOTHYROIDISM, UNSPECIFIED (10) CVA (cerebral vascular accident) Current Visit: No Status: Suspected Code(s): I63.9 - CEREBRAL INFARCTION, UNSPECIFIED - Plan Typical chest pain: History moderately suspicious given CP is worse with exertion & relieved with rest but character & worsening with inspiration more suspicious for pleuritic type pain consistent w/ possible pericarditis vs. myocarditis. No suspicion for any pulmonary infection such as PNA seen on CXR or based on clinical picture as patient is afebrile and satting well on RA. EKG showed sinud arrhythmia w/ no ST changes and initial troponin negative. BNP also WNLs. However, given risk factors, age, & moderately suspicious history heart score of 5 so will admit for telemetry for ACS r/o. - Will obtain a repeat PA & lateral CXR to re-evaluate concern for marked cardiomegaly read on CXR in ED. - Will continue to trend trops and make NPO at midnight for a repeat CXR in the AM. - Will order PRN nitrostat & IV morphine for chest pain overnight. HTN: - Aware, will resume home losartan. HLD: - Will obtain a FLP in the AM since patient has reported h/o of CVA & is not on a statin & also to risk stratify for possible ACS. - Will start on atorvastatin 40mg HS. CKD III: - Cr slightly elevated on comparison to last Cr in early October at 1.46 w/ an eGFR of 47. However, has been documented as worse than this per chart review. BUN:Cr ratio < 20 so likely pre-renal vs. intrinsic in origin. - Will hold on on IVFs as patient did not appear dry on clinical exam & recheck a BMP in the AM. h/o CVA: - Will continue home ASA & start on atorvastatin as described above. GERD: - Will resume home meds. BPH: - Will resume home meds. hypothyroidism: - Aware, will resume home synthroid but will check a TSH given chest pain. Bipolar disorder: - Aware, will resume home meds. Depression: - Aware, will resume home meds. Dispo: Will admit to tele for obs overnight. NPO at midnight for AM stress test & ECHO. Abx: none IVFs: none Diet: HH, low sodium; NPO at midnight DVT PPX: lovenox GI PPX: omeprazole CODE STATUS: FULL CODE FMR H&P: Upper Level - Pertinent history 73 yo M here with complaint of exertional chest pain that has been progressively worsening over the past month. He states that the pain is substernal and does not radiate. Pain resolves with rest. Associated symptoms include diaphoresis and shortness of breath. Patient has a hx of CVA in Sep 2018 with persisting left sided weakness. He was also diagnosed in that hospitalization with HFpEF, EF of 50-55%. In ED today the first trop was negative and EKG shows sinus arrhythmia. No ST or T wave changes. CXR shows a marked change in cardiac silhouette. PMHx HTN HFpEF CVA Hypothyroid MDD FHx Paternal CAD Maternal CVA x3 Social Hx 20 pack year smoker, quit in 1981 Former etoh abuse, quit in Denies recreational drugs - Pertinent findings See automotive internet sales manager note for vitals ROS General denies fever/chills. Admits to diaphoresis CV complains of substernal chest pain made worse by exercise. Does not radiate Resp denies SOB, cough Abd denies n/v/d Extremities denies edema Neuro complains of chronic L sided weakness PE General A&O x4 HEENT NCAT CV irregular rhythm, no murmur. Sinus arrhythmia noted on EKG. Chest pain not reproducible with palpation Rest CTA b/l Abd non tender, normal bowel sounds, no distension Extremities no edema, normal pedal pulses b/l Neuro Mild left sided weakness. Otherwise no focal deficits - Plan Date/Time: 12/24/18 17[address] DO, have evaluated this patient and agree with findings/plan as outlined by automotive internet sales manager resident. Pertinent changes/additions are listed here. 1. Chest pain - HEART score 6, admit to tele obs - trend trop x3 - Echo and stress in am, NPO at midnight, hold beta blockers - continue ASA 2. HFpEF - repeat echo as above. CXR shows marked change in cardiac size, however patient does not appear to be acutely overloaded. Normal sats, lungs are clear, no edema, no murmur 3. Hx of CVA - unclear why patient is not on plavix and statin. Plan to start while here 4. HTN - home meds 5. Hypothyroid - home meds PPx SHERIF is 2 will start SCD and frequent ambulation Diet HH, NPO at midnight Code Full Dispo: Patient is stable and not currently experiencing chest pain. Stress/echo in am, likely dc tomorrow pending results.
[2018-12-24] MEDS ORDERED: Acetaminophen 325 MG TAB PO PRN (18:36)
[2018-12-24] MEDS ORDERED: Nitroglycerin 0.4 MG TAB (25 Tab Bottle) SL PRN (18:36)
[2018-12-24] MEDS ORDERED: Morphine 4 MG/ML VIAL SLOW IVP PRN (18:36)
[2018-12-24 18:52] VITALS: BMI 24.5
[2018-12-24] MEDS ORDERED: Mometasone Furoate 120 PUFF 220 MCG INH PRN (19:01)
[2018-12-24 20:15] LABS: Magnesium 2.1 mg/dL (1.6-2.6); Phosphorus 3.3 mg/dL (2.3-4.7)
[2018-12-24] MEDS: Loratadine 10 MG TAB PO SCH (20:33)
[2018-12-24] MEDS: Atorvastatin Calcium 40 MG TAB PO SCH (20:33)
[2018-12-24] MEDS: Gabapentin 300 MG CAP PO SCH (20:33)
[2018-12-24] MEDS: Losartan 25 MG TAB PO SCH (20:33)
[2018-12-24] MEDS: Tamsulosin HCl 0.4 MG CAP PO SCH (20:33)
[2018-12-24] MEDS: Acyclovir 400 mg Tablet PO SCH (20:33)
--- NOTE | 2018-12-24 20:43 | RAD ---
PA AND LATERAL CHEST 12/24/18 HISTORY: Mid sternal chest pain. Assessment of cardiomegaly. The heart size borderline in size on this PA projection. There are atherosclerotic changes of the aor ta. A hiatal hernia is present. Lungs show chronic change. IMPRESSION: 1. Borderline heart size. Apparent enlargement on the prior exam appears it was just related to an apical lordotic technique. 2. Moderate hiatal hernia. POS: HUGO
--- NOTE | 2018-12-25 05:59 | PDOC.FM ---
- Subjective Subjective: Pt states he had mild pain occasionally throughout the night that would resolve spontaneously. He denies SOB, headaches, nausea, vomiting, or abdominal pain. He reports difficulty sleeping, likely due to room and bed. - Objective MAR Reviewed: Yes Vital Signs & Weight: Vital Signs (12 hours) Temp Pulse Resp BP BP Pulse Ox 12/25/18 04:14 98.1 F 64 14 134/67 96 12/24/18 19:24 97.5 F L 75 18 123/70 98 12/24/18 18:32 97.8 F 82 16 123/72 98 Weight Weight 89.176 kg Result Diagrams: 12/24/18 13:59 12/25/18 04:28 Phys Exam - Physical Examination Constitutional: NAD HEENT: PERRLA, moist MMs Neck: supple, full ROM Respiratory: no wheezing, no rales, no rhonchi, clear to auscultation bilateral Cardiovascular: RRR, no significant murmur, no rub Gastrointestinal: soft, non-tender, no distention, positive bowel sounds Musculoskeletal: no edema, pulses present Neurological: non-focal, moves all 4 limbs Psychiatric: normal affect, A&O x 3 Skin: cap refill <2 seconds Dx/Plan (1) CKD (chronic kidney disease), stage III Code(s): N18.3 - CHRONIC KIDNEY DISEASE, STAGE 3 (MODERATE) Status: Acute (2) History of CVA (cerebrovascular accident) Code(s): Z86.73 - PRSNL HX OF TIA (TIA), AND CEREB INFRC W/O RESID DEFICITS Status: Acute (3) Chest pain Code(s): R07.9 - CHEST PAIN, UNSPECIFIED Status: Acute (4) Bipolar disorder Code(s): F31.9 - BIPOLAR DISORDER, UNSPECIFIED Status: Chronic (5) GERD (gastroesophageal reflux disease) Code(s): K21.9 - GASTRO-ESOPHAGEAL REFLUX DISEASE WITHOUT ESOPHAGITIS Status: Chronic (6) HLD (hyperlipidemia) Code(s): E78.5 - HYPERLIPIDEMIA, UNSPECIFIED Status: Chronic (7) Hypertension Code(s): I10 - ESSENTIAL (PRIMARY) HYPERTENSION Status: Chronic - Plan Plan: This is a 73 yo male with a pmh of HTN, HLD, Hx of CVA, bipolar disorder, CKD 3 , BPH, GERD, hypothyroidism Typical chest pain -Normal CXR -EKG with sinus arrhythmia, no st changes -Heart score 5 -Troponin negative x3 -PRN nitro/morphine overnight for pain control -Pending AM stress test and echo -TSH is low at .08 HTN -Continue home losartan HLD -Pending lipid panel CKD3 -Cr slightly above baseline, holding fluids for now h/o CVA -Continue ASA and start atorvastatin GERD -Resume home meds Hypothyroidism -Low TSH at 0.8, may contribute to chest pain -Pending free t3/t4 Bipolar -Continue home meds BPH -Continue home meds
[2018-12-25 06:09] LABS: Anion Gap 9 mmol/L (10-20); BUN (Urea Nitrogen) 20 mg/dL (8.4-25.7); Calc. Creatinine Clearance 61 mL/min (70-130); Carbon Dioxide 25 mmol/L (23-31); Cardiac Risk 3.3 (Less than 4.5); Chloride 110 mmol/L (98-107); Cholesterol 127 mg/dl (< 200 Desired); Estimated GFR-MDRD 53; Glucose 93 mg/dL (83-110); HDL Cholesterol 39 mg/dL (>60 Neg Risk); LDL Cholesterol, Calculated 77 mg/dL; Sodium 140 mmol/L (136-145); Triglycerides 56 mg/dL (Less than 150)
[2018-12-25] MEDS: Levothyroxine Sodium 75 MCG TAB PO SCH (06:27)
[2018-12-25] MEDS: Bupropion 150 MG XL TAB PO SCH (08:11)
[2018-12-25] MEDS: Aspirin Chewable 81 MG TAB PO SCH (08:11)
[2018-12-25] MEDS: Gabapentin 300 MG CAP PO SCH ×3 (08:11→21:16)
[2018-12-25 08:51] LABS: Free T4 (Free Thyroxine) 1.11 ng/dL (0.70-1.48)
[2018-12-25] MEDS ORDERED: Regadenoson 0.4 MG/5 ML SYRINGE ONE (08:55)
[2018-12-25] MEDS ORDERED: Clopidogrel Bisulfate 75 MG TAB PO SCH (09:00)
--- NOTE | 2018-12-25 12:57 | PRG ---
DATE OF SERVICE: 12/25/2018 Mr. Mike is a pleasant 73-year-old male with no prior medical history of coronary artery disease, who presents with some atypical chest pain. He has risk factors and in fact in the past has had a stroke. He is currently undergoing a stress Myoview exam. He has had no chest discomfort since admission. His troponins are less than 0.01 x2 so far. Lipids; cholesterol is 127, his LDL is 77. We will await the results of his stress Myoview. If negative, he will be discharged. If positive, we will consult Cardiology to consider left heart catheterization. Job ID: [id number]
--- NOTE | 2018-12-25 14:36 | NM ---
MYOCARDIAL PERFUSION SCAN WITH SPECT IMAGING: History: Chest pain. FINDINGS: Examination was performed using 30 mCi Technetium 99M Sestamibi on stress and 9.5 mCi Technetium 99M Sestamibi on the resting images. This shows a fairly normal distribution of radiopharmaceutical witho ut signs of ischemia. Wall Motion: There is global hypokinesis. Left Ventricular Ejection Fraction: Calculated left ventricular ejection fraction was 39%. IMPRESSION: 1. No evidence of ischemia. 2. Diminished left ventricular ejection fraction or 39%. Please correlate with echocardiogram. POS: EDY
[2018-12-25] MEDS: RIBOFLAVIN 100 MG PO SCH ×2 (18:41→18:42)
[2018-12-25] MEDS: Acyclovir 400 mg Tablet PO SCH (21:14)
[2018-12-25] MEDS: Loratadine 10 MG TAB PO SCH (21:16)
[2018-12-25] MEDS: Tamsulosin HCl 0.4 MG CAP PO SCH (21:17)
[2018-12-25] MEDS: Losartan 25 MG TAB PO SCH (21:17)
[2018-12-25] MEDS: Atorvastatin Calcium 40 MG TAB PO SCH (21:18)
--- NOTE | 2018-12-26 05:51 | PDOC.FM ---
- Subjective Subjective: Pt reports no pain overnight. He states he is feeling better as well. He denies SOB, nausea, vomiting, or abdominal pain. - Objective MAR Reviewed: Yes Vital Signs & Weight: Vital Signs (12 hours) Temp Pulse Resp BP Pulse Ox 12/26/18 04:03 97.9 F 65 16 132/68 95 12/25/18 19:51 98.1 F 69 12 142/87 H 98 Weight Weight 85.139 kg I&O: 12/24/18 12/25/18 12/26/18 06:59 06:59 06:59 Intake Total 540 650 Balance 540 650 Result Diagrams: 12/24/18 13:59 12/25/18 04:28 Phys Exam - Physical Examination Constitutional: NAD HEENT: PERRLA, moist MMs Neck: supple Respiratory: no wheezing, no rales, clear to auscultation bilateral Cardiovascular: RRR, no significant murmur Gastrointestinal: soft, non-tender, no distention, positive bowel sounds Musculoskeletal: no edema, pulses present Neurological: moves all 4 limbs Psychiatric: normal affect, A&O x 3 Skin: cap refill <2 seconds Dx/Plan (1) CKD (chronic kidney disease), stage III Code(s): N18.3 - CHRONIC KIDNEY DISEASE, STAGE 3 (MODERATE) Status: Acute (2) History of CVA (cerebrovascular accident) Code(s): Z86.73 - PRSNL HX OF TIA (TIA), AND CEREB INFRC W/O RESID DEFICITS Status: Acute (3) Chest pain Code(s): R07.9 - CHEST PAIN, UNSPECIFIED Status: Acute (4) Bipolar disorder Code(s): F31.9 - BIPOLAR DISORDER, UNSPECIFIED Status: Chronic (5) GERD (gastroesophageal reflux disease) Code(s): K21.9 - GASTRO-ESOPHAGEAL REFLUX DISEASE WITHOUT ESOPHAGITIS Status: Chronic (6) HLD (hyperlipidemia) Code(s): E78.5 - HYPERLIPIDEMIA, UNSPECIFIED Status: Chronic (7) Hypertension Code(s): I10 - ESSENTIAL (PRIMARY) HYPERTENSION Status: Chronic - Plan Plan: This is a 73 yo male with a pmh of HTN, HLD, Hx of CVA, bipolar disorder, CKD 3 , BPH, GERD, hypothyroidism Typical chest pain -Normal CXR -EKG with sinus arrhythmia, no st changes -Heart score 5 -Troponin negative x3 -PRN nitro/morphine pain control -TSH is low at .08 -Echo shows EF of 45-50% with concern for diastolic dysfunction -Consult cardiology for above findings HTN -Continue home losartan HLD -Pending lipid panel CKD3 -Cr slightly above baseline, holding fluids for now h/o CVA -Continue ASA and start atorvastatin GERD -Resume home meds Hypothyroidism -Low TSH at 0.8, may contribute to chest pain -Normal T3/T4 Bipolar -Continue home meds BPH -Continue home meds
[2018-12-26] MEDS: Levothyroxine Sodium 75 MCG TAB PO SCH (06:22)
[2018-12-26] MEDS: Bupropion 150 MG XL TAB PO SCH (07:48)
[2018-12-26] MEDS: Gabapentin 300 MG CAP PO SCH (07:49)
[2018-12-26] MEDS: Aspirin Chewable 81 MG TAB PO SCH (07:50)
[2018-12-26 11:47] VITALS: BP 143/73; TEMP 97.5
--- NOTE | 2018-12-26 12:33 | PRG ---
DATE OF SERVICE: 12/26/2018 Mr. Mike is a pleasant 73-year-old man, who was admitted yesterday with some chest discomfort. Subsequent stress Myoview shows no evidence of reversible ischemia. He had history of possible heart failure and an echo was therefore performed. His echocardiogram report demonstrated an ejection fraction of 45% to 50%. There was suggestion of diastolic dysfunction. Mild mitral regurgitation and mild aortic regurgitation were noted. We consulted Cardiology, but they would prefer to see him as an outpatient. He will therefore be discharged later today with instructions regarding his diet. Job ID: [id number]
--- NOTE | 2018-12-27 06:31 | DIS ---
DATE OF ADMISSION: 12/24/2018 DATE OF DISCHARGE: 12/26/2018 RESIDENT: Devonte Tesfaye DO. ADMITTING ATTENDING: Dr. Damien Rush. DISCHARGING ATTENDING: Dr. Damien Rush. CONSULTS: None. PROCEDURES: 1. Chest x-ray showing marked cardiomegaly without signs of failure or local infiltrate. 2. Cardiac stress test shows no evidence of ischemia, but does show diminished left ventricular ejection fraction of 39%. 3. Echocardiogram shows E/A flow reversal suggestive of diastolic dysfunction and EF estimated at 45% to 50%. PRIMARY DIAGNOSIS: New onset heart failure with preserved ejection fraction. SECONDARY DIAGNOSES: 1. Hypertension. 2. BPH. 3. Hypothyroidism. 4. Gastroesophageal reflux disease. 5. Bipolar. 6. History of cerebrovascular disease. 7. Major depressive disorder. 8. Hyperlipidemia. 9. Chronic kidney disease, stage 3. DISCHARGE MEDICATIONS: 1. Lasix 20 mg p.o. daily. 2. Acyclovir 400 mg p.o. at bedtime. 3. Aspirin 81 mg p.o. daily. 4. Atorvastatin 80 mg p.o. at bedtime. 5. Bupropion 300 mg p.o. daily. 6. Zyrtec 10 mg p.o. at bedtime. 7. Gabapentin 300 mg p.o. t.i.d. 8. Hydroxyzine 10 mg p.o. daily. 9. Levothyroxine 150 mcg p.o. daily. 10. Vista carbonate 300 mg p.o. at bedtime. 11. Omeprazole 20 mg p.o. b.i.d. 12. Vitamin B2 is 100 mg p.o. b.i.d. 13. Tamsulosin 0.4 mg p.o. at bedtime. 14. Ambien 5 mg p.o. at bedtime p.r.n. insomnia. Discontinued medications, none. HISTORY OF PRESENT ILLNESS/HOSPITAL COURSE: This 73-year-old male who presented to the ER with past medical history as above with substernal chest pain that had been going on for three or four months. He rates the pain as 3/10 in severity, but states that the pain is worse with taking a deep breath. On admission, patient had a HEART score of 5, and was admitted to [facility] for echocardiogram as well as nuclear stress test. The patient was found to have the findings above. I discussed this case with Dr. Peacock, who would like to see the patient in an outpatient setting. At the time of discharge, patient was asymptomatic. Vital signs were stable. DISPOSITION: Stable. DISCHARGE INSTRUCTIONS: 1. Location, home. 2. Diet, heart healthy. 3. Activity, as tolerated. 4. Follow up with Dr. Peacock in 14 days as [facility] 1 to 2 weeks. Job ID: [id number]
== END 2018-12-26 12:31 | disposition home or self-care (01) ==
LOC: ERS 13:36 → 2SW 18:21
PROVIDERS: ADMIT Family Medicine; ATTEND Family Medicine
DX: I13.0 Hypertensive heart and chronic kidney disease with heart failure and stage 1 through stage 4 chronic kidney disease, or unspecified chronic kidney disease (principal); N18.3 Chronic kidney disease, stage 3 (moderate); I50.32 Chronic diastolic (congestive) heart failure; N40.0 Benign prostatic hyperplasia without lower urinary tract symptoms; E03.9 Hypothyroidism, unspecified; F31.9 Bipolar disorder, unspecified; K21.9 Gastro-esophageal reflux disease without esophagitis; E78.5 Hyperlipidemia, unspecified; I69.954 Hemiplegia and hemiparesis following unspecified cerebrovascular disease affecting left non-dominant side; I34.0 Nonrheumatic mitral (valve) insufficiency; I35.1 Nonrheumatic aortic (valve) insufficiency; K44.9 Diaphragmatic hernia without obstruction or gangrene; Z90.89 Acquired absence of other organs; Z87.891 Personal history of nicotine dependence; Z79.82 Long term (current) use of aspirin; Z79.899 Other long term (current) drug therapy; Z98.890 Other specified postprocedural states
CPT/HCPCS: 36415; 71045; 71046; 78452; 80048; 80053; 80061; 83690; 83735; 83880; 84100; 84439; 84443; 84481; 84484; 85025; 93005; 93017; 93306; A9500; G0378; J2785

== ENCOUNTER 2021-10-16 16:34 | Inpatient (IN) | payer OTHER ==
[2021-10-16] MEDS ORDERED: cefTRIAXone\\ROCEPHIN 1 GM VIAL ONE (16:57)
[2021-10-16 17:23] LABS: Bilirubin Negative (Negative); Blood, Urine 3+ (Negative); Clarity Clear (Clear); Glucose, Urine (Dipstick) Normal (Negative); Ketone, Urine Negative (Negative); Leukocyte 500 Leu/uL (Negative); Nitrite Negative (Negative); Protein, Urine (Dipstick) 30 mg/dL (Neg-Trace); RBC/HPF Greater than 50 HPF (0-3); Specific Gravity, Urine 1.013 (1.002-1.036); Squamous Epithelial None Seen HPF (0-3); Urobilinogen Normal mg/dL (Less than 2); WBC/HPF Greater than 50 HPF (0-3)
[2021-10-16 17:34] LABS: #Eosinphils 0.3 thou/uL (0.0-0.7); #Lymphocytes 0.4 thou/uL (1.20-3.40); #Monocytes 0.6 thou/uL (0.11-0.59); %Basophils 0.3 % (0.0-1.0); %Eosinophils 1.9 % (0.0-10.0); %Lymphocytes 2.6 % (21.0-51.0); %Monocytes 4.5 % (0.0-10.0); %Neutrophils 90.7 % (42.0-75.0); Hemoglobin 15.5 g/dL (14.0-18.0); Mean Corpuscular HGB CONC 31.3 g/dL (32.0-36.0); Mean Corpuscular Hemoglobin 30.9 pg (27.0-31.0); Mean Corpuscular Volume 98.6 fL (78.0-98.0); Mean Platelet Volume 8.6 fL (7.4-10.4); Platelet Count 266 thou/uL (130-400); RBC Distribution Width 12.4 % (11.5-14.5); Red Blood Cell (RBC) Count 5.02 mill/uL (4.70-6.10); White Blood Cell (WBC) Count 13.3 thou/uL (4.8-10.8)
[2021-10-16 17:37] LABS: Bacteria/HPF 1+ HPF (None Seen)
[2021-10-16 17:49] LABS: ALT (SGPT) 16 U/L (8-55); AST (SGOT) 27 U/L (5-34); Albumin 4.3 g/dL (3.4-4.8); Alkaline Phosphatase 157 U/L (40-110); Anion Gap 13 mmol/L (10-20); BUN (Urea Nitrogen) 16 mg/dL (8.4-25.7); Bilirubin, Total 0.9 mg/dL (0.2-1.2); CK (CPK) 328 U/L (30-200); Calc. Creatinine Clearance 0 mL/min (70-130); Calcium 11.1 mg/dL (7.8-10.44); Carbon Dioxide 25 mmol/L (23-31); Chloride 110 mmol/L (98-107); Globulin 3.7 g/dL (2.4-3.5); Glucose 127 mg/dL (83-110); Lipase 22 U/L (8-78); Magnesium 2.1 mg/dL (1.6-2.6); Potassium 4.1 mmol/L (3.5-5.1); Sodium 144 mmol/L (136-145)
[2021-10-16] MEDS ORDERED: Vancomycin 1 GM/200 ML BAG ONE (18:49)
[2021-10-16] MEDS ORDERED: Bisacodyl 5 MG TAB PO PRN (19:21)
[2021-10-16] MEDS ORDERED: Acetaminophen 650 MG Suppository PR PRN (19:21)
[2021-10-16] MEDS ORDERED: Senokot S 8.6-50 MG TAB PO PRN (19:21)
[2021-10-16] MEDS ORDERED: Acetaminophen 325 MG TAB PO PRN (19:21)
[2021-10-16] MEDS ORDERED: Bisacodyl 10 MG SUPP PR PRN (19:21)
[2021-10-16] MEDS: Lactated Ringer's 1,000 ML IV SCH (20:53)
[2021-10-16] MEDS: Famotidine 20 MG TAB PO SCH (20:53)
[2021-10-16] MEDS: Heparin 5,000 UNITS/ML VIAL SC SCH (21:01)
[2021-10-16 21:18] LABS: SARS-CoV-2 NAA Rapid Test Not Detected (NotDetected)
[2021-10-17] MEDS: Losartan 25 MG TAB PO SCH ×2 (03:29→20:12)
[2021-10-17] MEDS: Tamsulosin HCl 0.4 MG CAP PO SCH ×2 (03:29→20:12)
[2021-10-17] MEDS: Levothyroxine 150 MCG TAB PO SCH (05:08)
[2021-10-17] MEDS: Lactated Ringer's 1,000 ML IV SCH ×2 (05:08→12:38)
[2021-10-17 05:55] LABS: #Eosinphils 0.4 thou/uL (0.0-0.7); #Lymphocytes 0.7 thou/uL (1.20-3.40); #Monocytes 0.9 thou/uL (0.11-0.59); #Neutrophils 9.4 thou/uL (1.40-6.50); %Basophils 0.1 % (0.0-1.0); %Eosinophils 3.2 % (0.0-10.0); %Lymphocytes 6.1 % (21.0-51.0); %Monocytes 7.6 % (0.0-10.0); Hemoglobin 13.2 g/dL (14.0-18.0); Mean Corpuscular HGB CONC 31.8 g/dL (32.0-36.0); Mean Corpuscular Hemoglobin 31.7 pg (27.0-31.0); Mean Corpuscular Volume 99.9 fL (78.0-98.0); Mean Platelet Volume 8.6 fL (7.4-10.4); Platelet Count 245 thou/uL (130-400); RBC Distribution Width 12.2 % (11.5-14.5); Red Blood Cell (RBC) Count 4.16 mill/uL (4.70-6.10); White Blood Cell (WBC) Count 11.3 thou/uL (4.8-10.8)
[2021-10-17 06:14] LABS: Anion Gap 12 mmol/L (10-20); BUN (Urea Nitrogen) 14 mg/dL (8.4-25.7); Calc. Creatinine Clearance 60 mL/min (70-130); Calcium 9.5 mg/dL (7.8-10.44); Carbon Dioxide 20 mmol/L (23-31); Chloride 117 mmol/L (98-107); Glucose 105 mg/dL (83-110); Potassium 3.9 mmol/L (3.5-5.1); Sodium 145 mmol/L (136-145)
[2021-10-17] MEDS ORDERED: FLU VACC QS2021-22(65YR UP)/PF 240 MCG/0.7 ML SYRINGE IM ONE (09:00)
[2021-10-17] MEDS: Heparin 5,000 UNITS/ML VIAL SC SCH ×3 (09:41→20:15)
[2021-10-17] MEDS: Aspirin 81 mg Enteric Coated Tablet PO SCH ×2 (10:11→12:29)
[2021-10-17 12:03] VITALS: BMI 20.7
[2021-10-17] MEDS: Cyanocobalamin (Vitamin B-12) 1,000 MCG TAB PO SCH (12:29)
[2021-10-17] MEDS: Magnesium Oxide 400 MG TAB PO SCH (12:30)
[2021-10-17] MEDS: Calcium Carbonate 600 MG + Vit D TAB PO SCH ×2 (12:30→20:12)
[2021-10-17] MEDS: Carbidopa/Levodopa CR 50-200 mg Tablet PO SCH ×3 (12:30→20:12)
[2021-10-17] MEDS: Famotidine 20 MG TAB PO SCH ×3 (12:31→20:15)
[2021-10-17] MEDS: Polyethylene Glycol 3350 17 GM Packet PO SCH (12:36)
[2021-10-17] MEDS ORDERED: cefTRIAXone\\ROCEPHIN 1 GM in Sodium Chloride 0.9% 100 ML IVPB SCH (18:00)
[2021-10-17] MEDS ORDERED: Lithium Carbonate ER 450 mg Tablet PO SCH (21:00)
[2021-10-17] MEDS ORDERED: Atorvastatin Calcium 40 MG TAB PO SCH (21:00)
[2021-10-18] MEDS: Levothyroxine 150 MCG TAB PO SCH (05:39)
[2021-10-18 06:28] LABS: #Eosinphils 0.6 thou/uL (0.0-0.7); #Lymphocytes 1.2 thou/uL (1.20-3.40); #Monocytes 0.7 thou/uL (0.11-0.59); #Neutrophils 6.3 thou/uL (1.40-6.50); %Basophils 0.3 % (0.0-1.0); %Eosinophils 7.1 % (0.0-10.0); %Lymphocytes 13.7 % (21.0-51.0); %Neutrophils 70.9 % (42.0-75.0); Hemoglobin 13.5 g/dL (14.0-18.0); Mean Corpuscular HGB CONC 30.1 g/dL (32.0-36.0); Mean Corpuscular Hemoglobin 30.5 pg (27.0-31.0); Mean Platelet Volume 8.7 fL (7.4-10.4); Platelet Count 269 thou/uL (130-400); RBC Distribution Width 12.5 % (11.5-14.5); Red Blood Cell (RBC) Count 4.41 mill/uL (4.70-6.10); White Blood Cell (WBC) Count 8.8 thou/uL (4.8-10.8)
[2021-10-18 06:43] LABS: Anion Gap 9 mmol/L (10-20); BUN (Urea Nitrogen) 19 mg/dL (8.4-25.7); Calc. Creatinine Clearance 54 mL/min (70-130); Calcium 9.5 mg/dL (7.8-10.44); Carbon Dioxide 25 mmol/L (23-31); Chloride 114 mmol/L (98-107); Glucose 106 mg/dL (83-110); Potassium 3.8 mmol/L (3.5-5.1); Sodium 144 mmol/L (136-145)
[2021-10-18] MEDS: Carbidopa/Levodopa CR 50-200 mg Tablet PO SCH ×2 (08:21→14:28)
[2021-10-18] MEDS: Aspirin 81 mg Enteric Coated Tablet PO SCH (08:22)
[2021-10-18] MEDS: Calcium Carbonate 600 MG + Vit D TAB PO SCH (08:22)
[2021-10-18] MEDS: Cyanocobalamin (Vitamin B-12) 1,000 MCG TAB PO SCH (08:22)
[2021-10-18] MEDS: Famotidine 20 MG TAB PO SCH ×2 (08:23→08:24)
[2021-10-18] MEDS: Polyethylene Glycol 3350 17 GM Packet PO SCH (08:24)
[2021-10-18] MEDS: Magnesium Oxide 400 MG TAB PO SCH (08:24)
[2021-10-18] MEDS: Heparin 5,000 UNITS/ML VIAL SC SCH ×2 (08:25→14:29)
[2021-10-18] MEDS ORDERED: Ciprofloxacin 500 MG TAB PO SCH ×2 (12:00→20:00)
[2021-10-18 15:00] VITALS: TEMP 98.1
[2021-10-18 20:04] VITALS: BP 122/70
== END 2021-10-18 15:03 | DRG 698 ==
LOC: ERS 16:34 → T4-B 18:54
PROVIDERS: ADMIT Emergency Medicine; ATTEND Emergency Medicine
DX: T83.518A Infection and inflammatory reaction due to other urinary catheter, initial encounter (principal); A41.59 Other Gram-negative sepsis; Z20.822 Contact with and (suspected) exposure to COVID-19; G93.41 Metabolic encephalopathy; S32.19XA Other fracture of sacrum, initial encounter for closed fracture; N39.0 Urinary tract infection, site not specified; Y84.6 Urinary catheterization as the cause of abnormal reaction of the patient, or of later complication, without mention of misadventure at the time of the procedure; X58.XXXA Exposure to other specified factors, initial encounter; N18.9 Chronic kidney disease, unspecified; G20 Parkinson's disease; I12.9 Hypertensive chronic kidney disease with stage 1 through stage 4 chronic kidney disease, or unspecified chronic kidney disease; K21.9 Gastro-esophageal reflux disease without esophagitis; E03.9 Hypothyroidism, unspecified; N40.0 Benign prostatic hyperplasia without lower urinary tract symptoms; J30.2 Other seasonal allergic rhinitis; F31.9 Bipolar disorder, unspecified; Z79.82 Long term (current) use of aspirin; Z79.890 Hormone replacement therapy; Z79.899 Other long term (current) drug therapy
CPT/HCPCS: 36415; 70450; 71045; 74176; 80048; 80178; 81003; 81015; 82550; 83605; 83690; 83735; 83880; 84443; 84484; 85025; 87040; 87086; 93005; J0696; J1644; J3370; J3490; J7120; U0002